=== PATIENT | female | born 1960 | race Caucasian/White ===

== ENCOUNTER 2024-09-17 12:52 | Inpatient (IN) | payer OTHER ==
[2024-09-17 14:09] VITALS: BMI 31.3
[2024-09-17] MEDS ORDERED: BISMUTH SUBSALICYLATE 524 MG/30 ML PO PRN (16:43)
[2024-09-17] MEDS ORDERED: DICYCLOMINE HCL 10 MG CAPSULE PO PRN (16:43)
[2024-09-17] MEDS ORDERED: NICOTINE POLACRILEX 2 MG GUM BUC PRN (16:43)
[2024-09-17] MEDS ORDERED: BENZONATATE 200 MG CAPSULE PO PRN (16:43)
[2024-09-17] MEDS ORDERED: IBUPROFEN 600 MG TABLET (FP) PO PRN (16:43)
[2024-09-17] MEDS ORDERED: NALOXONE (NARCAN) HCL 4 MG/0.1 ML SPRAY NS PRN (16:43)
[2024-09-17] MEDS ORDERED: POLYETHYLENE GLYCOL (HEALTHYLAX) 3350 17 GM PACKET PO PRN (16:43)
[2024-09-17] MEDS ORDERED: BENZOCAINE/MENTHOL (CHLORASEPTIC ) LOZENGE MM PRN (16:43)
[2024-09-17] MEDS ORDERED: LOPERAMIDE HCL 2 MG CAPSULE PO PRN (16:43)
[2024-09-17] MEDS ORDERED: MAG HYDROX/AL HYDROX/SIMETH 30 ML UNIT-DOSE CUP PO PRN (16:43)
[2024-09-17] MEDS ORDERED: NICOTINE POLACRILEX 2 MG LOZENGE BC PRN (16:43)
[2024-09-17] MEDS ORDERED: IBUPROFEN 400 MG TABLET (FP) PO PRN (16:43)
[2024-09-17] MEDS ORDERED: ONDANSETRON *ODT* 4 MG TABLET SL PRN (16:43)
[2024-09-17] MEDS ORDERED: guaiFENesin 600 MG TABLET.ER (FP) PO PRN (16:43)
[2024-09-17] MEDS: ACETAMINOPHEN 325 MG TABLET (FP) PO PRN (19:02)
[2024-09-17] MEDS: diazePAM 5 MG TABLET PO PRN (19:05)
[2024-09-17] MEDS: METHOCARBAMOL 500 MG TABLET PO PRN (20:31)
[2024-09-17] MEDS: THIAMINE 100 MG TABLET PO SCH (22:53)
[2024-09-17] MEDS: diazePAM 5 MG TABLET PO SCH (22:53)
[2024-09-17] MEDS: MELATONIN 5 MG TABLETS PO SCH (22:53)
[2024-09-18] MEDS ORDERED: methaDONE HCL 40 MG DISPERSABLE TABLET PO ONE (09:04)
[2024-09-18] MEDS: methaDONE 80 MG, methaDONE 10 MG PO ONE (09:30)
[2024-09-18] MEDS: PANTOPRAZOLE 40 MG TABLET PO SCH (09:30)
[2024-09-18] MEDS: PRENATAL VITAMINS W/ FOLIC ACID TABLET (FP) PO SCH (09:30)
[2024-09-18] MEDS: methaDONE 40 MG, methaDONE 20 MG PO ONE (09:36)
[2024-09-18] MEDS: MAGNESIUM HYDROX 2400MG/30ML ORAL SUSPENSION 30 ML CUP PO PRN (09:42)
[2024-09-18] MEDS: NICOTINE 7 MG/24 HOURS TOPICAL PATCH TD SCH (11:25)
[2024-09-18] MEDS: GABAPENTIN 300 MG CAPSULE PO SCH (13:35)
[2024-09-18] MEDS: hydrOXYzine PAMOATE 25 MG CAPSULE (FP) PO PRN (13:36)
[2024-09-18] MEDS ORDERED: PATIENT'S OWN MEDICATION (NON-FORMULARY) (Gabapentin [Gabapentin] 600 MG Tablet) PO SCH (14:00)
[2024-09-18 14:59] LABS: HEMATOCRIT 34.1 % (34.1-44.9); HEMOGLOBIN 10.8 g/dL (11.2-15.7); MCHC 31.7 g/dl (32.2-35.5); MEAN CELL VOLUME 107.9 fl (79.4-94.8); MEAN PLT VOLUME 10.3 fl (9.4-12.3); PLATELET COUNT 216 x10^3/uL (182-369); RDW 13.9 % (12.4-16.4)
[2024-09-18 15:12] LABS: CHLORIDE 95 mmol/L (98-107); POTASSIUM 4.4 mmol/L (3.5-5.1); SODIUM 131 mmol/L (136-145)
[2024-09-18 15:30] LABS: ALBUMIN 3.1 g/dl (3.4-5.0); ANION GAP 9 mmol/L (4-13); BILIRUBIN,TOTAL 0.9 mg/dL (0.2-1); BLOOD UREA NITROGEN 12.8 mg/dL (7-18); CALCIUM 8.7 mg/dL (8.5-10.1); CO2 27 mmol/L (21-32); GLUCOSE,RANDOM 118 mg/dL (74-106); TOT PROT 6.3 g/dl (6.4-8.2)
[2024-09-18 15:32] LABS: ALK PHOS 100 U/L (45-117)
[2024-09-18 15:33] LABS: CREATININE 0.9 mg/dL (0.55-1.3); SGOT/AST 60 U/L (15-37); SGPT/ALT 32 U/L (13-61)
[2024-09-18] MEDS: QUEtiapine FUMARATE 50 MG TABLET PO SCH (22:24)
[2024-09-19] MEDS ORDERED: methaDONE 40 MG, methaDONE 20 MG PO SCH (06:00)
[2024-09-19] MEDS ORDERED: methaDONE 80 MG, methaDONE 10 MG PO SCH (06:00)
[2024-09-19] MEDS: methaDONE 80 MG, methaDONE 10 MG PO SCH (06:16)
[2024-09-19] MEDS: diazePAM 5 MG TABLET PO SCH (06:16)
[2024-09-19] MEDS: LIDOCAINE 4% PATCH TP SCH (12:18)
[2024-09-19] MEDS: LIDOCAINE PATCH REMOVAL MC SCH (23:25)
[2024-09-20] MEDS: diazePAM 5 MG TABLET PO SCH (06:32)
[2024-09-20 17:46] VITALS: PULSE 60; RESP 16
[2024-09-20 21:23] VITALS: BP 131/78; TEMP 97.7
[2024-09-21] MEDS: diazePAM 5 MG TABLET PO ONE (06:15)
== END 2024-09-21 06:30 | disposition home or self-care (01) | DRG 773 ==
LOC: YASAS 12:52 → Y6N 18:30
PROVIDERS: ADMIT Allergy & Immunology; ATTEND Allergy & Immunology
PROC: HZ2ZZZZ Detoxification Services for Substance Abuse Treatment (ICD-10-PCS; principal; 2024-09-17)
DX: F10.230 Alcohol dependence with withdrawal, uncomplicated (principal); F11.20 Opioid dependence, uncomplicated; F17.290 Nicotine dependence, other tobacco product, uncomplicated; F41.9 Anxiety disorder, unspecified; F32.A Depression, unspecified; K21.9 Gastro-esophageal reflux disease without esophagitis; K59.03 Drug induced constipation; Z88.0 Allergy status to penicillin
CPT/HCPCS: 36415; 80053; 80305; 80307; 85027; 86780; 93005; 93010